=== PATIENT | male | born 1960 | race Caucasian/White ===

== ENCOUNTER → 2018-04-07 09:20 | Outpatient (CLI) | payer OTHER, SELFPAY ==
[2017-04-08 11:27] VITALS: BMI 34.1
[2018-04-07 12:39] LABS: Absolute Lymphocyte Count 2.06 X10^3/ul (0.83-4.51); Absolute Neutrophil Count 4.8 X10^3/uL (2.0-7.7); Basophil# 0.03 X10^3/uL; Basophil% 0.4 % (0-1); Eosinophil# 0.15 X10^3/uL; Hematocrit 45.9 % (40-54); Hemoglobin 15.3 g/dl (13.0-16.5); Lymphocyte # 2.06 X10^3/ul (4.0); Mean Corp Hgb Conc 33.3 g/gl (32-36); Mean Corpuscular Hgb 29.9 pg (27.0-32.0); Mean Corpuscular Volume 89.6 fL (80-94); Mean Platelet Vol. 10.7 fl (6.2-12.0); Monocyte# 0.56 X10^3/uL; Monocyte% 7.3 % (0-10); Neutrophil # 4.81 X10^3/uL (2.7-7.7); Neutrophil % 63.2 % (47-70); Platelet Count 186 K/mm3 (150-450); RBC Distribution Width CV 12.6 % (11.6-14.6); RBC Distribution Width SD 40.7 fl (35.1-43.9); Red Blood Count 5.12 M/mm3 (4.6-6.2); White Blood Count 7.6 K/mm3 (4.4-11.0)
[2018-04-07 12:44] LABS: POSITIVE COUNT NO; POSITIVE DIFFERENTIAL NO; POSITIVE MORPHOLOGY NO
[2018-04-07 12:46] LABS: AST(SGOT) 21 U/L (15-37); Alanine Aminotransfer ALT/SGPT 37 U/L (16-61); Albumin, Serum 3.6 g/dL (3.2-5.0); Alkaline Phosphatase 45 U/L (45-117); Anion Gap 5 (5-15); BUN 17 mg/dL (7-18); BUN/Creat Ratio 18.4 RATIO (10-20); Bilirubin, Direct 0.08 mg/dL (0.00-0.30); Calcium,Total 8.6 mg/dL (8.5-10.1); Chloride 110 mmol/L (98-107); Creatinine, Serum 0.92 mg/dL (0.70-1.30); EST Glomerular Filtration Rate 90 mL/min (>60); Est Glom Filt Rate - Afr Amer 109 mL/min (>60); Globulin 3.1 g/dL (2.2-4.2); Glucose 80 mg/dL (74-106); Potassium 4.1 mmol/L (3.5-5.1); Protein, Total 6.7 g/dL (6.4-8.2); Sodium Level 143 mmol/L (136-145)
[2018-04-10 06:07] LABS: QNTFERON TB Mitogen Value > 10.00 IU/mL (.); QNTFERON TB Nil Value 0.03 IU/mL (.); QNTFERON TB1+ Ag Value 0.03 IU/mL (.); QNTFERON TB2+ Ag Value 0.03 IU/mL (.)
[2018-04-10 07:34] LABS: QNTIFERON TB Positive Criteria Negative (Negative)
== END ==
PROVIDERS: Family Provider Family Medicine; PCP Family Medicine; Referring Provider Physician Assistant; Visit Provider Physician Assistant
DX: L40.0 Psoriasis vulgaris (principal); Z79.899 Other long term (current) drug therapy; L40.8 Other psoriasis
CPT/HCPCS: 36415; 80048; 80076; 85025; 86480

== ENCOUNTER → 2019-04-09 09:04 | Outpatient (CLI) | payer OTHER, SELFPAY ==
[2019-04-12 03:06] LABS: QNTFERON TB Mitogen Value > 10.00 IU/mL (.); QNTFERON TB Nil Value 0.13 IU/mL (.); QNTFERON TB1+ Ag Value 0.07 IU/mL (.); QNTFERON TB2+ Ag Value 0.05 IU/mL (.)
[2019-04-12 11:35] LABS: QNTIFERON TB Positive Criteria Negative (Negative)
== END ==
PROVIDERS: Family Provider Family Medicine; PCP Family Medicine; Referring Provider Physician Assistant Medical; Visit Provider Physician Assistant Medical
DX: L40.0 Psoriasis vulgaris (principal); Z79.899 Other long term (current) drug therapy
CPT/HCPCS: 36415; 86480

== ENCOUNTER → 2021-01-11 10:48 | Outpatient (CLI) | payer OTHER, SELFPAY ==
[2021-01-15 20:07] LABS: QNTFERON TB Mitogen Value > 10.00 IU/mL (.); QNTFERON TB Nil Value 0.05 IU/mL (.); QNTFERON TB1+ Ag Value 0.05 IU/mL (.); QNTFERON TB2+ Ag Value 0.05 IU/mL (.)
[2021-01-16 09:06] LABS: QNTIFERON TB Positive Criteria Negative (Negative)
== END ==
PROVIDERS: PCP Family Medicine; Referring Provider Physician Assistant Medical; Visit Provider Physician Assistant Medical
DX: L40.0 Psoriasis vulgaris (principal); Z79.899 Other long term (current) drug therapy
CPT/HCPCS: 36415; 86480

== ENCOUNTER 2024-04-17 00:14 | Emergency (ER) | payer BC, SELFPAY ==
[2024-04-17] VITALS (17 sets, daily range): BP systolic 52–159; BP diastolic 40–74; PULSE 44–93; RESP 14–26; TEMP 36.5–36.8; O2SAT 90–95; BMI 35.5
--- NOTE | 2024-04-17 00:48 | CT_ITS ---
ACR Level 3 findings have been noted. An addendum which confirms receipt of the report will follow. EXAM: CT ANGIOGRAPHY CHEST WITHOUT AND WITH INTRAVENOUS CONTRAST CLINICAL INDICATION: right pleuritic CP, high risk TECHNIQUE: Helically acquired angiography images were obtained of the chest without and with intravenous contrast. This CT exam was performed using one or more of the following dose reduction techniques: automated exposure control, adjustment of the mA and/or kV according to patient size, and/or use of iterative reconstruction technique. MIP reconstructed images were created and reviewed. CONTRAST: IV 100mL Isovue-370 RADIATION DOSE: CTDIvol = 26.90 mGy, DLP = 580.85 mGy-cm COMPARISON: No relevant prior studies available. FINDINGS: PULMONARY ARTERIES: Filling defects within lobar and segmental pulmonary artery branches in the right lower lobe consistent with acute pulmonary emboli. Normal in caliber. AORTA: Unremarkable. Normal in caliber. No evidence of dissection. GREAT VESSELS OF AORTIC ARCH: Unremarkable. Normal in caliber. No evidence of dissection. LUNGS AND PLEURAL SPACES: Unremarkable. No mass. No consolidation or edema. No pleural effusion or thickening. No pneumothorax. HEART: Evidence of mild right heart strain with RV/LV ratio measuring 1.04 No pericardial effusion. No significant coronary artery calcifications. MEDIASTINUM: Unremarkable. No mediastinal or hilar adenopathy. Esophagus is unremarkable. No hiatal hernia. THYROID: Unremarkable. No thyroid lesions. BONES/JOINTS: Degenerative changes of the spine. No suspicious lytic or blastic abnormality. CT/CTA Chest W/WO Contrast IMPRESSION: 1. Filling defects within lobar and segmental pulmonary artery branches in the right lower lobe consistent with acute pulmonary emboli. 2. Evidence of mild right heart strain with RV/LV ratio measuring 1.04 Electronically Signed: Samir Ferrell MD at 2:14 EST ,
--- NOTE | 2024-04-17 00:50 | EKG12_ITS ---
Test Reason : DYSRHYTHMIA Blood Pressure : */* mmHG Vent. Rate : 90 BPM Atrial Rate : 90 BPM P-R Int : 126 ms QRS Dur : 78 ms QT Int : 346 ms P-R-T Axes : 7 -25 -10 degrees QTcB Int : 423 ms Normal sinus rhythm Minimal voltage criteria for LVH, may be normal variant ( R in aVL ) Borderline ECG Confirmed by SANDRA IVAN, GRICELDA ([id number]), film editor supervisor ZACH ALMANZAR ([id number]) on 04/17/2024 8:15:52 AM Referred By: BB Confirmed By: GRICELDA FLORES MD
--- NOTE | 2024-04-17 00:51 | ED.VIS.CHEST ---
HPI History of Present Illness Chief Complaint: Shortness of Breath Informant: patient Narrative Narrative: 64-year-old male feels like he is having pain in his right lung. He states it felt like it was in his chest this morning, progressed back to his right upper back, feels like it is going all the way through but mostly in the middle, hurts worse to lay back better to sit forward and much worse to take a deep breath. He has never had a DVT or a PE before and takes no anticoagulants for any other reason. He takes aspirin every day. He had back surgery about 2 months ago in January, and L4 microdiscectomy. He states a few weeks after that he started getting some more swelling than usual in his left leg which is usually asymmetrically swollen, and that has persisted. Denies any significant calf pain. He has been getting around okay. Denies any recent cough or cold or URI, nor does he have a cough now or fever/chills. No recent injury. States he has chronic right shoulder pain, which gives him issues with his right shoulder not is not new or different. [facility] Medical History Psoriasis Home Medications ?Medication ?Instructions ?Recorded ?Last Taken ?Type apixaban 5 mg (74 tabs) tablets in See Rx Instructions PO .COMPLEX 04/17/24 Unknown Rx a dose pack (Eliquis DVT-PE Treat #74 tabs 30D Start) lisinopril 30 mg tablet 30 mg PO DAILY 04/17/24 Unknown History omeprazole 20 mg capsule,delayed 20 mg PO DAILY 04/17/24 Unknown History release risankizumab-rzaa 150 mg/mL mg subcut 04/17/24 Unknown History subcutaneous pen injector (Skyrizi) tamsulosin 0.4 mg capsule 0.4 mg PO QHS 04/17/24 Unknown History Allergy/AdvReac Type Severity Reaction Status Date / Time meperidine HCl (From Demerol) Allergy Hives Verified 04/17/24 00:14 promethazine HCl (From Allergy Hives Verified 04/17/24 00:14 Phenergan) Family History (Updated 04/23/17 @ 08:26 by Jocelyne Oscar) Mother No problems noted. Surgical History H/O microdiscectomy Status post total left knee replacement S/P inguinal hernia repair Social History Smoking Status: Former smoker ROS ROS ED Constitutional Constitutional ED: Denies chills or fever(s) Eyes Eyes: Denies change in vision or diplopia ENT ENT ED: Denies rhinorrhea or sore throat Cardiovascular Cardiovascular: Reports as per HPI, chest pain and leg edema; Denies palpitations Respiratory/Chest Respiratory/Chest: Reports dyspnea on exertion; Denies cough Gastrointestinal Gastrointestinal: Denies abdominal pain, diarrhea, nausea or vomiting Genitourinary Genitourinary ED: Denies dysuria or hematuria Musculoskeletal Musculoskeletal: Reports back pain; Denies neck pain Integumentary Denies abscess or rash Neurologic Neurologic: Denies headache(s), paresthesias or weakness Psychiatric Psychiatric: Denies anxiety or suicidal thoughts EXAM Physical Exam Const Vital Signs: 04/17/24 00:15 04/17/24 00:23 04/17/24 00:25 Temperature 98.3 F Temperature Source Temporal Pulse Rate 93 Respiratory Rate 20 H Respiratory Effort Normal Non-Labored Normal Non-Labored Respiratory Depth Normal Respiratory Pattern Normal Blood Pressure 159/74 H Blood Pressure Mean 102 Pulse Ox 95 Oxygen Delivery Method Room Air Room Air 04/17/24 00:50 04/17/24 01:00 04/17/24 01:02 Temperature Temperature Source Pulse Rate 44 L Respiratory Rate 14 Respiratory Effort Respiratory Depth Respiratory Pattern Blood Pressure 52/40 L 87/55 L Blood Pressure Mean 44 65 Pulse Ox 92 Oxygen Delivery Method Room Air Room Air 04/17/24 01:04 04/17/24 01:04 04/17/24 01:15 Temperature Temperature Source Pulse Rate 80 79 83 Respiratory Rate 25 H 25 H 17 Respiratory Effort Respiratory Depth Respiratory Pattern Blood Pressure 110/71 110/71 127/72 H Blood Pressure Mean 84 83 88 Pulse Ox 92 90 91 Oxygen Delivery Method Room Air 04/17/24 01:19 04/17/24 01:30 04/17/24 01:45 Temperature 97.7 F L Temperature Source Oral Pulse Rate 77 81 Respiratory Rate 17 26 H Respiratory Effort Respiratory Depth Respiratory Pattern Blood Pressure 123/66 H 123/66 H 143/68 H Blood Pressure Mean 85 83 88 Pulse Ox 92 91 Oxygen Delivery Method Room Air 04/17/24 01:58 04/17/24 02:00 04/17/24 02:18 Temperature Temperature Source Pulse Rate 87 Respiratory Rate 24 H Respiratory Effort Respiratory Depth Respiratory Pattern Blood Pressure 116/60 Blood Pressure Mean 76 Pulse Ox 95 95 93 Oxygen Delivery Method 04/17/24 02:30 04/17/24 02:45 04/17/24 03:00 Temperature Temperature Source Pulse Rate 80 80 81 Respiratory Rate 19 H 23 H 19 H Respiratory Effort Respiratory Depth Respiratory Pattern Blood Pressure 126/64 H 135/61 H 123/63 H Blood Pressure Mean 81 80 80 Pulse Ox 91 91 93 Oxygen Delivery Method 04/17/24 03:07 04/17/24 04:00 Temperature 97.8 F Temperature Source Pulse Rate 84 76 Respiratory Rate 24 H 25 H Respiratory Effort Respiratory Depth Respiratory Pattern Blood Pressure 123/63 H 110/54 L Blood Pressure Mean 83 72 Pulse Ox 92 93 Oxygen Delivery Method Room Air Positive well nourished and well developed General Appearance ED: well developed and NAD HEENT Reports moist mucous membranes normocephalic and atraumatic Eyes PERRL and EOMs intact bilaterally Neck full ROM and supple Chest Wall inspection of chest normal and palpation of chest normal Resp normal respiratory effort and clear to auscultation bilaterally Resp Narrative: Limited inspiration as the patient splints when breathing deeply. Breath sounds are equal bilaterally. Cardio regular rate, regular rhythm and no murmurs Rate: Negative for tachycardic GI non-tender and non-distended GI Narrative: Negative Garrison's, no right upper quadrant tenderness. Auscultation: normoactive bowel sounds Palpation: soft Back/Spine no CVA tenderness General Back: other FROM Extremity normal to inspection Extremity Narrative: There is trace edema both pretibial lower legs, it seems a little worse on the left. No calf tenderness no palpable cords no signs of cellulitis. General Extremety ED: Yes edema; Negative for pulses abnormal or tenderness General Extremity: edema bilateral; Negative for pulses abnormal Neuro oriented x3, CN's II-XII intact bilaterally and no sensory deficits noted Sensorium / Orientation: awake and alert Motor Exam: strength 5/5 throughout Skin no rashes or lesions noted and no wounds MDM MDM MDM Narrative Medical decision making narrative: Wells' Criteria for Pulmonary Embolism from [employer] on 04/17/2024 All calculations should be rechecked by clinician prior to use RESULT SUMMARY: 6.0 points Moderate risk group: 16.2% chance of PE in an ED population. Another study assigned scores > 4 as ?PE Likely? and had a 28% incidence of PE. INPUTS: Clinical signs and symptoms of DVT ?> 3 = Yes PE is #1 diagnosis OR equally likely ?> 3 = Yes Heart rate > 100 ?> 0 = No Immobilization at least 3 days OR surgery in the previous 4 weeks ?> 0 = No Previous, objectively diagnosed PE or DVT ?> 0 = No Hemoptysis ?> 0 = No Malignancy w/ treatment within 6 months or palliative ?> 0 = No I am concerned that this could be a PE. I calculated Wells score as above, his score is 6, therefore will obtain CT angiography of the chest as a D-dimer is not appropriate. He presents after midnight and am not able to obtain an ultrasound of the left lower leg at this time. Labs reviewed, he has a mild nonspecific leukocytosis, his renal function is normal. Prior to going to CT, he had an episode where he felt sweaty and lightheaded. His heart rate went down to the 40s and his blood pressure transiently went down to the 80s, he did not lose consciousness, he states that the sensation passed, he had no dysrhythmia looking at the strips. This is all consistent with a vagal response the patient said before this he was in a lot of pain and I had ordered morphine and Zofran that he had not yet received. He was doing better by the time I checked on him. Therefore he got the medications in addition to some fluids that I ordered and he had no more issues after that. I reviewed the CT images upon his arrival back to the room, and on my interpretation he has right-sided pulmonary emboli and no airspace consolidation/disease, which explains his symptoms. Therefore he was given subcutaneous Lovenox 1 mg/kg and had nurses ambulate him with pulse oximetry. He did well and was not hypoxic. Radiology interpreted his CT as I did along with some mild right heart strain based on calculated ratios. He does not have signs of strain on the EKG nor does he have an elevated troponin and is doing well with light ambulation. His PESI score is calculated as follows: Pulmonary Embolism Severity Index (PESI) from [employer] on 04/17/2024 All calculations should be rechecked by clinician prior to use RESULT SUMMARY: 73 points Class II, Low Risk: 1.7-3.5% 30-day mortality in this group. INPUTS: Age ?> 64 years Sex ?> 10 = Male History of cancer ?> 0 = No History of heart failure ?> 0 = No History of chronic lung disease ?> 0 = No Heart rate >=10 ?> 0 = No Systolic BP <100 mmHg ?> 0 = No Respiratory rate >=0 ?> 0 = No Temperature <36?C/96.8?F ?> 0 = No Altered mental status (disorientation, lethargy, stupor, or coma) ?> 0 = No O2 saturation <90% ?> 0 = No Given all of this, I think he can be safely discharged home on anticoagulation with close outpt follow up. I discussed with E-ICU/pulmonology Dr. Mcguire; he recommends bringing the patient in for an echocardiogram to evaluate for the possibility of a false positive CT with regards to the right heart strain, admitting that it does not have to be done emergently. Discussed with hospitalist. They recommended obtaining a repeat troponin and if stable/negative, discharging the patient home on apixaban and setting the patient up for outpatient echo and lower extremity ultrasounds if able. That was done and the measurement was the same as the initial, 6. Lab Data Attestation: I reviewed the patient's lab results. Labs: Laboratory Results - last 24 hr 04/17/24 04/17/24 00:28 03:29 WBC 14.2 H RBC 4.90 Hgb 14.9 Hct 43.4 MCV 88.6 MCH 30.4 MCHC 34.3 RDW Std Deviation 40.0 RDW Coeff of Polo 12.4 Plt Count 221 MPV 10.3 Immature Gran % (Auto) 0.600 Neut % (Auto) 80.9 H Lymph % (Auto) 9.5 L [place] % (Auto) 7.4 Eos % (Auto) 1.1 Baso % (Auto) 0.5 Absolute Neuts (auto) 11.5 H Absolute Lymphs (auto) 1.35 Nucleated RBC % 0 Sodium 139 Potassium 4.5 Chloride 109 H Carbon Dioxide 25.0 Anion Gap 5 BUN 26 H Creatinine 1.20 Estim Creat Clear Calc 69.75 Est GFR (MDRD) Af Amer 79 Est GFR (MDRD) Non-Af 65 BUN/Creatinine Ratio 21.7 H Glucose 110 H Calcium 9.9 Troponin I High Sens 6 6 Radiography Diagnostic Testing: Clinical Impression(s) from Imaging Studies Chest CTA 04/17/24 00:48 IMPRESSION: 1. Filling defects within lobar and segmental pulmonary artery branches in the right lower lobe consistent with acute pulmonary emboli. 2. Evidence of mild right heart strain with RV/LV ratio measuring 1.04 Electronically Signed: Samir Ferrell MD at 2:14 EST Reading Location ID and State: [facility] / [place] Tel , Service support , ADDENDUM: 04/17/24 0242 IMPRESSION: 1. Filling defects within lobar and segmental pulmonary artery branches in the right lower lobe consistent with acute pulmonary emboli. 2. Evidence of mild right heart strain with RV/LV ratio measuring 1.04 N.B. : The above information has been verbally conveyed by Samir Ferrell MD to Dany Viera MD, on 04/17/2024 02:35:05 (ET). Electronically Signed: Samir Ferrell MD at 2:14 EST Reading Location ID and State: [facility] / [place] Tel , Service support , Rhythm Strip Rhythm Strip: Sinus Rhythm Rate: 93 Ectopy: None EKG Initial EKG: Attestation: I personally reviewed and interpreted this EKG as follows: Interpretation: Sinus Rhythm and No Acute Injury Pattern Comments: Leftward axis Prior EKG tracings: available for review Prior: Unchanged Management Discussion w/another healthcare provider: Hospitalist, Substitute Crossing Guard ( Pulmonology) and Radiologist Discharge Plan Triage Chief Complaint: Shortness of Breath Other Complaint: Chest Pain ED Provider: Dany Viera Dx/Rx/DC Orders Clinical Impression: Pulmonary embolism on right Instructions: Embolism Pulmonary Dc Prescriptions: New Eliquis DVT-PE Treat 30D Start 5 mg (74 tabs) tablets,dose pack See Rx Instructions .ROUTE .COMPLEX Qty: 74 0RF Rx Instructions: orally per package directions No Action tamsulosin 0.4 mg capsule 0.4 mg PO QHS lisinopril 30 mg tablet 30 mg PO DAILY omeprazole 20 mg capsule,delayed release(DR/EC) 20 mg PO DAILY Skyrizi 150 mg/mL pen injector subcut Patient Comments: starting 04/23/24 Other Ambulatory Orders: Echo Complete (Routine) Facility: [facility] - Location: [facility] [place] Ordered By: Dr. Dany Viera Venous Duplex US - Sandro Extrem (Stat) Facility: [facility] - Location: [facility] [place] Ordered By: Dr. Dany Viera Primary Care Provider: Russell Rae Referrals: Russell Rae MD [Primary Care Provider] - As soon as possible Print Language: Ukrainian Disposition Disposition: Home, Self Care
[2024-04-17 01:01] LABS: Absolute Lymphocyte Count 1.35 X10^3/uL (0.83-4.51); Absolute Neutrophil Count 11.5 X10^3/uL (2.0-7.7); Basophil# 0.07 X10^3/uL; Basophil% 0.5 % (0-1); Eosinophil# 0.15 X10^3/uL; Eosinophils% 1.1 % (0-5); Hematocrit 43.4 % (40-54); Hemoglobin 14.9 g/dL (13.0-16.5); Lymphocyte # 1.35 X10^3/ul (0.83-4.51); Lymphocyte % 9.5 % (19-41); Mean Corp Hgb Conc 34.3 g/dL (32-36); Mean Corpuscular Hgb 30.4 pg (27.0-32.0); Mean Corpuscular Volume 88.6 fL (80-94); Mean Platelet Vol. 10.3 fl (6.2-12.0); Monocyte# 1.05 X10^3/uL; Monocyte% 7.4 % (0-10); NRBC Flagged by Analyzer 0 % (0-5); Neutrophil # 11.52 X10^3/uL (2.7-7.7); Neutrophil % 80.9 % (47-70); Platelet Count 221 K/mm3 (150-450); RBC Distribution Width CV 12.4 % (11.6-14.6); White Blood Count 14.2 K/mm3 (4.4-11.0)
[2024-04-17] MEDS: Morphine 4 MG/ML Syringe IV (01:06)
[2024-04-17] MEDS: Ondansetron 4 MG/2 ML Vial IV (01:06)
[2024-04-17] MEDS: Aspirin 81 MG TAB.CHEW 324 MG PO (01:07)
[2024-04-17] MEDS: 0.9% Normal Saline (500mL Bag) 500 ML 999 ML IV (01:07)
--- NOTE | 2024-04-17 01:12 | ED.RN ---
Pt called out stating the pt felt like he was going to be sick, this RN walked in and the pt was clammy and sweaty. This RN informed Dr Viera who said to conintue with the meds ordered. This RN walked back in and the pt BP was 52/40 with a HR of 44-50. This RN called for Dr Viera to come and assess the patient due to hypotension and bradycardia. Fluids were ordered and meds were given.
[2024-04-17 01:35] LABS: Anion Gap 5 (5-15); BUN 26 mg/dL (7-18); BUN/Creat Ratio 21.7 RATIO (10-20); Calcium,Total 9.9 mg/dL (8.5-10.1); Chloride 109 mmol/L (98-107); EST Glomerular Filtration Rate 65 mL/min (>60); Est Glom Filt Rate - Afr Amer 79 mL/min (>60); Estimated Creatinine Clearance 69.75 ml/min; Glucose 110 mg/dL (74-106); Potassium 4.5 mmol/L (3.5-5.1); Sodium Level 139 mmol/L (136-145); Troponin-I HS 6 pg/mL (3.0-78.0)
[2024-04-17] MEDS: Enoxaparin 100 MG/ML Syringe SC (02:18)
[2024-04-17 04:15] LABS: Troponin-I HS 6 pg/mL (3.0-78.0)
--- NOTE | 2024-04-17 06:15 | PCM.PN.BLA ---
Progress Note 64-year-old male presented to the hospital with chest pain shortness of breath. Initial troponin was unremarkable repeat troponin was also 6. He was found to have pulmonary embolisms on CTA of the chest and he did endorse some left lower extremity swelling and pain over the last couple days. He did have a spine surgery in January and mobility has been somewhat limited though improving. He is not tachycardic with a normal troponin unlikely to have any significant right heart strain regardless of how the CTA was read. He is not hypoxic either at rest or with ambulation and I discussed that he would be low risk to be discharged home at this time with appropriate Eliquis dosing. I do recommend outpatient follow-up with his PCP and an outpatient echo in the near future. I discussed with him and his the plan for possible discharge from the ER on Eliquis and he expressed understanding the risk benefits of going home and would like to go home today.
== END 2024-04-17 04:43 | disposition home or self-care (01) ==
PROVIDERS: Emergency Provider Emergency Medicine; PCP Family Medicine; Visit Provider Emergency Medicine
DX: I26.99 Other pulmonary embolism without acute cor pulmonale (principal); Z87.891 Personal history of nicotine dependence; Z96.652 Presence of left artificial knee joint
CPT/HCPCS: 71275; 80048; 84484; 85025; 93005; 96361; 96372; 96374; 96375; 99285; Q9967; A4216; J2405

== ENCOUNTER → 2024-04-17 | Outpatient (CLI) | payer BC, OTHER, SELFPAY ==
--- NOTE | 2024-04-17 14:54 | VDLE_ITS ---
Reason For Study: HX PE RIGHT LEFT GSV is normal. GSV is normal. CFV is compressible, spontaneous, phasic, CFV is compressible, spontaneous, phasic, competent and demonstrates normal competent, and demonstrates normal augmentation. augmentation. FV is compressible, spontaneous, phasic, FV is compressible, spontaneous, phasic, competent and demonstrates normal competent and demonstrates normal augmentation. augmentation. POP V is compressible, spontaneous, phasic, POP V is compressible, spontaneous, phasic, competent and demonstrates normal competent and demonstrates normal augmentation. augmentation. T/P Trunk is compressible. T/P Trunk is compressible. PTV is compressible. PTV is compressible. RT PerV is compressible. LT PerV is compressible. Procedure This is a venous duplex using B-mode, color flow and spectral Doppler. Exam performed in department. The exam was diagnostic. A preliminary report was called and/or faxed to Dr. Rae office. VL/Venous Duplex US - Sandro Extrem Interpretation Summary Deep veins of the lower extremities are bilaterally patent and compressible seg mentally. There is no evidence of deep vein thrombosis on either side. Valvular competence appears in tact within the proximal deep venous systems bilaterally. The great saphenous veins appear bila terally patent and compressible segmentally. Ordering Physician: Dany Viera Referring Physician: Russell Rae Performed By: Octaviano Chiu, RVT
== END | disposition home or self-care (01) ==
LOC: CVS 14:52
PROVIDERS: PCP Family Medicine; Referring Provider Emergency Medicine; Visit Provider Emergency Medicine
DX: Z86.711 Personal history of pulmonary embolism (principal)
CPT/HCPCS: 93970

== ENCOUNTER → 2024-04-28 | Outpatient (CLI) | payer BC, OTHER, SELFPAY ==
--- NOTE | 2024-04-28 07:47 | ECHOD_ITS ---
Version 2 Reason For Study: Pulmonary Embolism Procedure This was a 2D Doppler, Color Flow transthoracic echocardiogram. Myocardial strain analysis was performed in this exam to aid in the assessment of cardiac function. Exam performed in department. Left Ventricle Normal LV size. Mild concentric left ventricular hypertrophy. Left ventricular systolic function is normal. The left ventricular ejection fraction is 65 %. No regional wall motion abnormalities noted. Right Ventricle Normal RV size. Normal systolic function. Atria Normal left atrium. Normal right atrium. Mitral Valve Normal mitral valve. Tricuspid Valve Normal tricuspid valve. Mild (1+) tricuspid valve insufficiency. Pulmonary artery systolic pressure is 20 mmHg. Aortic Valve Normal aortic valve. Pulmonic Valve Normal pulmonic valve. Great Vessels Normal aortic root. The pulmonary artery is normal size. Inferior vena cava collapse with respiration. Pericardium/Pleural No pericardial effusion. MMode/2D Measurements & Calculations LVIDd: 4.7 cm IVSd: 1.2 cm asc Aorta Diam: 3.6 cm LVIDs: 3.0 cm LVPWd: 1.3 cm RVDd: 3.3 cm FS: 37.0 % LAV(MOD-bp): 35.3 ml LVAd ap4: 29.7 cm2 SV(MOD-sp4): 59.6 ml LAV(MOD-bp) Indexed: 16.5 ml/m2 LVLd ap4: 8.3 cm SI(MOD-sp4): 28.0 ml/m2 LAV(MOD-sp2): 28.9 ml EDV(MOD-sp4): 88.1 ml LAV(MOD-sp4): 38.1 ml EDV(sp4-el): 90.4 ml LVAs ap4: 14.6 cm2 LVLs ap4: 6.6 cm ESV(MOD-sp4): 28.4 ml ESV(sp4-el): 27.2 ml EF(MOD-sp4): 67.7 % EF(sp4-el): 69.9 % SV(sp4-el): 63.2 ml LA A4 area: 17.1 cm2 LA dimension(2D): 4.4 cm RA A4 area: 12.2 cm2 TAPSE: 2.2 cm Time Measurements MV dec time: 0.23 sec Doppler Measurements & Calculations MV E max johnnie: 70.8 cm/sec Lat Peak E' Johnnie: 8.7 cm/sec Med Peak E' Johnnie: 7.4 cm/sec MV A max johnnie: 96.0 cm/sec E/E' lat: 8.1 E/E' med: 9.6 MV E/A: 0.74 Ao V2 max: 182.1 cm/sec LV V1 max: 129.5 cm/sec MV dec slope: 308.8 cm/sec2 Ao max P.3 mmHg LV V1 max P.7 mmHg Ao V2 mean: 124.5 cm/sec Ao mean P.9 mmHg Ao V2 VTI: 31.3 cm PA V2 max: 119.6 cm/sec PI end-d johnnie: 143.8 cm/sec TR max johnnie: 206.2 cm/sec TR max P.0 mmHg ECHO/Echo Complete Interpretation Summary Normal LV size. Left ventricular systolic function is normal. The left ventricular ejection fraction is 65 %. The global longitudinal strain is normal. The global longitudinal strain = -19. 6 % (normal). Ordering Physician: Dany Viera Referring Physician: Russell Rae Performed By: Shirlene Amos, HANNAH, RVT
== END | disposition home or self-care (01) ==
LOC: CVS 07:46
PROVIDERS: PCP Family Medicine; Referring Provider Emergency Medicine; Visit Provider Emergency Medicine
DX: I26.99 Other pulmonary embolism without acute cor pulmonale (principal)
CPT/HCPCS: 93306